=== PATIENT | male | born 1960 | race Caucasian/White ===

== ENCOUNTER 2017-03-20 06:39 | Emergency (ER) | payer OTHER ==
[~2017-03-20 06:39] MED LIST: CIPRO PO; NO MEDS; NORCO1 TAB 10/3 PO
[2017-03-20 07:53] LABS: URINE SOURCE CATH
[2017-03-20 07:59] LABS: URINE APPEARANCE CLEAR; URINE BILIRUBIN NEG (NEG); URINE BLOOD 3+ (NEG); URINE COLOR YELLOW; URINE GLUCOSE NEG (NEG); URINE KETONE NEG (NEG); URINE LEUKOCYTE ESTERASE TRACE (NEG); URINE NITRATE NEG (NEG); URINE PH 5.5 (5-8); URINE PROTEIN 1+ (NEG); URINE SPECIFIC GRAVITY 1.009 (1.003-1.035); URINE UROBILINOGEN 0.2 MG/DL (NEG)
[2017-03-20 08:02] LABS: URINE BACTERIA AUWI NEG (NEGATIVE); URINE SQUAMOUS EPITHELIAL CELL NONE SEEN /[HPF]; UWBCS1 AUWI 0-2 (0-5)
[2017-03-20 08:03] LABS: CULTURE INDICATED? NO
== END 2017-03-20 08:48 | disposition home or self-care (01) ==
LOC: CED 06:39
PROVIDERS: Nurse Practitioner
DX: R31.9 Hematuria, unspecified (principal); F17.210 Nicotine dependence, cigarettes, uncomplicated; Z98.890 Other specified postprocedural states
CPT/HCPCS: 51701; 81003; 99283

== ENCOUNTER 2017-03-27 18:05 | Emergency (ER) | payer OTHER ==
--- NOTE | ~2017-03-27 | CT4 ---
[facility] A Service of [facility] RADIOLOGY TEXT RESULTS PATIENT: LACIE SUAREZ LOCATION: [facility] : 64 UNIT #: [id number] AGE: [address]: Darcie Walters MD SEX: M ORDER DR: [id number] [facility] [address] [place], [place] [address] [id number] MR#: [id number] Acc #: [id number] NAME: LACIE SUAREZ. : 1960 SEX: M STUDY DATE/TIME: 03/27/2017 22:22 UNIT: [place] ROOM: STUDY DESCRIPTION: CT Abd and Pelv Wo Cont Attending Physician: Darcie Walters M.D. Ordering Physician: Darcie Walters M.D. Primary Care Physician: Owen Hoang M.D. MEDICAL IMAGING REPORT This report is preliminary unless electronic signature is present EXAM CT abdomen and pelvis without contrast. HISTORY Left hip pain after a fall today, also neck pain. COMPARISON 01/21/2014 TECHNIQUE Axial 3 mm images were obtained through the abdomen and pelvis without IV or oral contrast. This CT exam was performed with one or more of the following radiation dose reduction techniques: automatic exposure control, adjustment of mA and/or kV according to patient size, and iterative reconstruction. FINDINGS The lungs are clear. The liver, gallbladder, spleen, pancreas, adrenal glands, and kidneys are normal. The aorta is normal in size and there is no adenopathy. The bowel including the appendix appears normal. There is a Green catheter in the bladder. The prostate gland is normal. The bones are normal except for degenerative changes in the lumbar spine. There is no left hip fracture. IMPRESSION 1. 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 2. No left hip fracture is visible. 3. Otherwise, the study is normal. [facility] A Service [facility] RADIOLOGY TEXT RESULTS PATIENT: LACIE SUAREZ LOCATION: [facility] : 64 UNIT #: [id number] AGE: [address]: Darcie Walters MD SEX: M ORDER DR: Dictated by... Surinder Guadarrama M.D. THIS IS AN ELECTRONICALLY VERIFIED REPORT Surinder Guadarrama M.D. at 03/28/2017 1:43 PM KEREN/josh TD: 03/28/2017 12:47 JOB #: [id number] MEDICAL IMAGING REPORT Page 1 of 1 COPY
--- NOTE | ~2017-03-27 | CT52 ---
[facility] A Service of [facility] RADIOLOGY TEXT RESULTS PATIENT: LACIE SUAREZ LOCATION: [facility] : 64 UNIT #: [id number] AGE: [address]: Darcie Walters MD SEX: M ORDER DR: [id number] [id number] [facility]. [place], [place] [address] [id number] MR#: [id number] Acc #: [id number] NAME: LACIE SUAREZ. : 1960 SEX: M STUDY DATE/TIME: 03/27/2017 22:14 UNIT: [facility] ROOM: STUDY DESCRIPTION: CT Cervical Spine Wo Cont Attending Physician: Darcie Walters M.D. Ordering Physician: Darcie Walters M.D. Primary Care Physician: Owen Hoang M.D. MEDICAL IMAGING REPORT This report is preliminary unless electronic signature is present EXAM CT scan of the cervical spine without contrast HISTORY Patient fell February 04 and continues to have neck pain since then. TECHNIQUE Axial 2.0 mm images were obtained through the cervical spine and sagittal and coronal reconstructions were generated. This CT exam was performed with one or more of the following radiation dose reduction techniques: automatic exposure control, adjustment of mA and/or kV according to patient size, and iterative reconstruction. FINDINGS The vertebral bodies have normal alignment. There is mild disc space narrowing at 2-3, 3-4 and 4-5. The patient has undergone prior surgery posteriorly at C2, 3, 4, and 6. There are metal plates transfixing defects in the lamina of those levels on the left side. There is a tubular defect in the C2 right lamina presumably surgically created and there are similar defects noted at 3 and 4. IMPRESSION 1. The patient has had extensive cervical spine surgery. On the left side there are defects in the lamina at 2 through 6 and those have been transfixed with metal plates and on the right side there are well circumscribed tubular defects in the lamina at the same levels except for C6 which appear to be surgically created. No acute abnormalities are identified. There is no subluxation. [facility] A Service of [facility] RADIOLOGY TEXT RESULTS PATIENT: LACIE SUAREZ LOCATION: [facility] : 64 UNIT #: [id number] AGE: [address]: Darcie Walters MD SEX: M ORDER DR: Dictated by... Surinder Guadarrama M.D. THIS IS AN ELECTRONICALLY VERIFIED REPORT Surinder Guadarrama M.D. at 03/28/2017 1:42 PM Lupe TD: 03/28/2017 12:37 JOB #: [id number] MEDICAL IMAGING REPORT Page 1 of 1 COPY
[2017-03-27 23:11] LABS: BASOPHIL# 0.1 X10e3 (0-0.3); BASOPHIL% 0.4 % (0-2.5); EOSINOPHIL# 0.4 X10e3 (0-0.7); EOSINOPHIL% 2.6 % (0.0-7.0); HEMATOCRIT 35.9 % (38.0-50.0); HEMOGLOBIN 11.5 gm/dL (13.0-16.0); LYMPHOCYTE# 2.7 X10e3 (1.0-3.5); LYMPHOCYTE% 19.7 % (17.0-45.0); MEAN CELL VOLUME 88.4 FL (83-96); MEAN CORPUSCULAR HEMOGLOBIN 28.3 PG (28-34); MEAN PLATELET VOLUME 7.6 FL (6.5-11.5); MONOCYTE# 1.7 X10e3 (0-1.0); NEUTROPHIL% 65.3 % (40-75); PLATELET COUNT 400 X10e3 (140-420); RED BLOOD COUNT 4.06 X10e (3.90-5.60); RED CELL DISTRIBUTION WIDTH 14.7 % (11.0-15.5); WHITE BLOOD COUNT 13.8 X10e3 (4.0-10.5)
[2017-03-27 23:13] LABS: DIFF IND NO
[2017-03-27 23:24] LABS: INR 1.1; PARTIAL THROMBOPLASTIN TIME 29.6 SECONDS (23.5-31.3); PROTHROMBIN TIME (PATIENT) 12.1 SECONDS (10.0-11.7)
[2017-03-27 23:36] LABS: ALBUMIN SERUM 3.3 g/dL (3.5-5.0); BILIRUBIN, DIRECT 0.1 mg/dL (0.0-0.2); BILIRUBIN,INDIRECT 0.2 mg/dL (0.0-0.9); BILIRUBIN,TOTAL 0.3 mg/dL (0.2-2.0); CREATININE SERUM 0.8 mg/dL (0.6-1.4); GLOM FILT RATE Estimated 101.3 mL/min (>60); POTASSIUM 4.2 mmol/L (3.5-5.1); PROTEIN TOTAL SERUM 7.6 g/dL (6.0-8.3)
[2017-03-27 23:37] LABS: URINE SOURCE CLEAN CATCH
[2017-03-27 23:40] LABS: URINE APPEARANCE CLOUDY; URINE BILIRUBIN NEG (NEG); URINE BLOOD 3+ (NEG); URINE COLOR YELLOW; URINE GLUCOSE NEG (NEG); URINE KETONE NEG (NEG); URINE LEUKOCYTE ESTERASE 2+ (NEG); URINE NITRATE POS (NEG); URINE PH 6.5 (5-8); URINE PROTEIN 2+ (NEG); URINE SPECIFIC GRAVITY 1.025 (1.003-1.035)
[2017-03-27 23:42] LABS: CULTURE INDICATED? YES; URBCS1 AUWI 25-50 /[HPF] (0-2); URINE BACTERIA AUWI 4+ (NEGATIVE); URINE SQUAMOUS EPITHELIAL CELL NONE SEEN /[HPF]; UWBCS1 AUWI 50-100 (0-5)
== END 2017-03-28 01:30 | disposition home or self-care (01) ==
LOC: CED 18:05
PROVIDERS: Student in an Organized Health Care Education/Training Program
DX: N39.0 Urinary tract infection, site not specified (principal); M25.552 Pain in left hip; F17.200 Nicotine dependence, unspecified, uncomplicated
CPT/HCPCS: 36415; 51702; 72125; 74176; 80048; 80076; 81003; 85025; 85610; 85730; 87086; 87088; 87186; 96365; 96375; 99284; J0696; J2270; J2405